=== PATIENT | female | born 1995 ===

== ENCOUNTER 2021-05-02 00:09 | Inpatient (IN) | payer OTHER ==
[~2021-05-02] VITALS: Ht 152.4 cm; Wt 84.4 kg
--- NOTE | 2021-05-02 16:27 | PR ---
[facility] [address] [place], [place] [address] Signed Progress Notes IP Datetime Report Generated by DIANA: 05/02/2021 16:27 PROGRESS NOTES: [id number] Procedures: Sterile Vag Exam Plan: Continue Present Management Informed Consent Obtain: Section Delivery; Induction of Labor; Risks, Benefits and Alternatives Discussed VITAL SIGNS: [id number] Vital Signs: Reviewed; Within Normal Limits EXAM: [id number] Dilatation: 0.0 Effacement: 0 Station: -3 Contractions: Irregular MEMBRANES: [id number] Comments: Called to pt's room for urgent evaluation. Pt had been in bathtub and when returned on monitor prolonged deceleration and deep variable decelerations. FHT resolved w/ position changes and IV fluid bolus. Acceleration noted w/ scalp stim. Cx still closed and thick. Noted frequent contractions; no vaginal bleeding. Reviewed concerns with patient; nonreassuring FHT now much improved w/ intrauterine rescussitation, however cx remains closed despite multiple courses of prostaglandin. No obvious sx of abruption but will continue to monitor closely. Reviewed w/ pt and all questions answered to best of my ability and to pt's apparent satisfaction. Will expectantly manage at this point and watch closely. FETUS A: [id number] FHR Baseline: 145 Variability: Moderate 6-25bpm Accelerations: 15X15 Decelerations: None FHR Category: Category I Comments on Fetus A: No evidence of metabolic acidosis FETUS B: [id number] Signing Physician: Deejay Li DO Copies: ~ *Electronically Signed* 05/02/21 1627 DEEJAY LI DO PATIENT NAME: LORETTA BULLARD PROGRESS NOTE DATE OF : [birth year] PHYSICIAN: DEEJAY LI DO RPT #: [id number] REPORT IS CONFIDENTIAL AND NOT TO BE RELEASED WITHOUT AUTHORIZATION
--- NOTE | 2021-05-02 19:04 | PR ---
[facility] [address] [place], [place] [address] Signed Progress Notes IP Datetime Report Generated by CPN: 05/02/2021 19:04 PROGRESS NOTES: [id number] Impression: Reassuring Heart Rate Procedures: Sterile Vag Exam Plan: Continue Present Management Other Plans: Expectant management Informed Consent Obtain: Section Delivery; Induction of Labor; Risks, Benefits and Alternatives Discussed VITAL SIGNS: [id number] Vital Signs: Reviewed; Within Normal Limits EXAM: [id number] Dilatation: 0.0 Effacement: 0 Station: -3 Contractions: Irregular MEMBRANES: [id number] Comments: Pt seen and examined. Pt frustrated w/ lack of progress and painful contractions. Pt concerned about decelerations that have resolved. Discussed frequent contractions w/ reassuring FHT. Discussed contraindication for additional prostaglandins or pitocin. Unable to place cervical balloon due to closed status and unable to tolerate pelvic exams well. Plan expectant management at this time. Discussed indications for if needed. Offered epidural if pt desires. All questions answered. FETUS A: [id number] FHR Baseline: 145 Variability: Moderate 6-25bpm Accelerations: 15X15 Decelerations: None FHR Category: Category I Comments on Fetus A: No evidence of metabolic acidosis FETUS B: [id number] Signing Physician: Deejay Li DO Copies: ~ *Electronically Signed* 05/02/21 1904 DEEJAY LI DO PATIENT NAME: LORETTA BULLARD PROGRESS NOTE DATE OF : [birth year] PHYSICIAN: DEEJAY LI DO [facility] #: [id number] REPORT IS CONFIDENTIAL AND NOT TO BE RELEASED WITHOUT AUTHORIZATION
--- NOTE | 2021-05-03 08:47 | PR ---
[facility] [address] [place], [place] [address] Signed Progress Notes IP Datetime Report Generated by DIANA: 05/03/2021 07:53 PROGRESS NOTES: [id number] Impression: Reassuring Heart Rate Procedures: Sterile Vag Exam Plan: Cervical Ripening Other Plans: Expectant management Informed Consent Obtain: Vaginal Delivery; Section Delivery; Induction of Labor VITAL SIGNS: [id number] Vital Signs: Reviewed; Within Normal Limits EXAM: [id number] Dilatation: 0.0 Effacement: 0 Station: -3 Contractions: Irregular MEMBRANES: [id number] Comments: Pt seen and examined. Baby w/ reassuring FHT overnight and contractions more mild and spaced. On exam, cervix continues to be closed thick and posterior. Reviewed options for continued IOL. Discussed I would not feel comfortable discharging pt home given decelerations yesterday. Reviewed Bishops score and unripened cervix. Unable to place Cook / Walton catheter for mechanical ripening. Cervidil unavailable. Recommended continue cervical ripening w/ cytotec. Reviewed indications for primary delivery if needed. All questions answered, and pt understands and agrees with plan of care. FETUS A: [id number] FHR Baseline: 145 Variability: Moderate 6-25bpm Accelerations: 15X15 Decelerations: None FHR Category: Category I Comments on Fetus A: No evidence of metabolic acidosis FETUS B: [id number] Signing Physician: Deejay Li DO Copies: ~ *Electronically Signed* 05/03/21 0753 DEEJAY LI DO PATIENT NAME: LORETTA BULLARD PROGRESS NOTE DATE OF : 93 PHYSICIAN: DEEJAY LI DO RPT #: [id number] REPORT IS CONFIDENTIAL AND NOT TO BE RELEASED WITHOUT AUTHORIZATION
--- NOTE | 2021-05-03 14:15 | PR ---
[facility] [address] [place], [place] [address] Signed Progress Notes IP Datetime Report Generated by CPDevin: 05/03/2021 14:15 PROGRESS NOTES: [id number] Impression: Reassuring Heart Rate Procedures: Sterile Vag Exam Plan: Anesthesia Consult Other Plans: Expectant management Informed Consent Obtain: Vaginal Delivery; Section Delivery; Induction of Labor VITAL SIGNS: [id number] Vital Signs: Reviewed; Within Normal Limits EXAM: [id number] Dilatation: 0.0 Effacement: 0 Station: -3 Contractions: Irregular MEMBRANES: [id number] Comments: Pt seen and examined. Doing well but becoming more frustrated w/ lack of progress. Contractions uncomfortable. FHT reassuring. Cx unchanged and pt unable to tolerate exams. Recommend labor epidural. This may allow better exams and / or cervical procedures (balloon AROM etc) to continue forward with induction. Pt understands and agrees FETUS A: [id number] FHR Baseline: 145 Variability: Moderate 6-25bpm Accelerations: 15X15 Decelerations: None FHR Category: Category I Comments on Fetus A: No evidence of metabolic acidosis FETUS B: [id number] Signing Physician: Deejay Li DO Copies: ~ *Electronically Signed* 05/03/21 1417 DEEJAY LI DO PATIENT NAME: LORETTA BULLARD PROGRESS NOTE DATE OF : [birth year] PHYSICIAN: DEEJAY LI DO RPT #: [id number] REPORT IS CONFIDENTIAL AND NOT TO BE RELEASED WITHOUT AUTHORIZATION
--- NOTE | 2021-05-03 15:44 | PR ---
[facility] [address] [facility] [place] [place] [address] Signed Progress Notes IP Datetime Report Generated by CPN: 05/03/2021 15:43 PROGRESS NOTES: [id number] Impression: Reassuring Heart Rate Procedures: Sterile Vag Exam Plan: Cervical Ripening Other Plans: Expectant management Informed Consent Obtain: Vaginal Delivery; Section Delivery; Induction of Labor VITAL SIGNS: [id number] Vital Signs: Reviewed; Within Normal Limits EXAM: [id number] Dilatation: 0.0 Effacement: 60 Station: -3 Contractions: Irregular MEMBRANES: [id number] Comments: Pt seen and examined. Comfortable w/ epidural. Fingertip and soft on cx exam. Will continue another dose of cytotec and consider Cook cath if additional ripening required. FETUS A: [id number] FHR Baseline: 145 Variability: Moderate 6-25bpm Accelerations: 15X15 Decelerations: None FHR Category: Category I Comments on Fetus A: No evidence of metabolic acidosis FETUS B: [id number] Signing Physician: Deejay Li DO Copies: ~ *Electronically Signed* 05/03/21 1543 DEEJAY LI DO PATIENT NAME: LORETTA BULLARD PROGRESS NOTE DATE OF : [birth year] PHYSICIAN: DEEJAY LI DO RPT #: [id number] REPORT IS CONFIDENTIAL AND NOT TO BE RELEASED WITHOUT AUTHORIZATION
--- NOTE | 2021-05-03 21:26 | PR ---
[facility] [address] [place], [place] [address] Signed Progress Notes IP Datetime Report Generated by CPDevin: 05/03/2021 21:26 PROGRESS NOTES: [id number] Impression: Normal Progression of Labor; Reassuring Heart Rate Procedures: Artificial ROM; Intrauterine Pressure Catheter; Scalp Electrode; Sterile Vag Exam Plan: Continue Present Management Other Plans: Expectant management Informed Consent Obtain: Vaginal Delivery; Section Delivery; Induction of Labor VITAL SIGNS: [id number] Vital Signs: Reviewed; Within Normal Limits EXAM: [id number] Dilatation: 2.5 Effacement: 50 Station: -3 Contractions: Irregular MEMBRANES: F5509456 Comments: Called to pt room for recurrent late decels and minimal variability. AROM performed for moderate amount of clear fluid and IUPC / FSE placed without difficulty. With intrauterine rescussitation and scalp stim, FHT now reassuring w/ moderate variability and accelerations. Pelvis adequate. Discussed close monitoring of heart tracing and indications to continue trial of . Reviewed indications should be required. All questions answered. Pt and partner comfortable w/ plan of care. Anesthesia to evaluate for possible bolus of epidural as pt w/ window on left. FETUS A: [id number] FHR Baseline: 145 Variability: Moderate 6-25bpm Accelerations: 15X15 Decelerations: None FHR Category: Category I Comments on Fetus A: No evidence of metabolic acidosis FETUS B: [id number] Signing Physician: Deejay Li DO Copies: ~ *Electronically Signed* 05/03/212125 DEEJAY LI DO PATIENT NAME: LORETTA BULLARD PROGRESS NOTE DATE OF : [birth year] PHYSICIAN: DEEJAY LI DO RPT #: [id number] REPORT IS CONFIDENTIAL AND NOT TO BE RELEASED WITHOUT AUTHORIZATION
--- NOTE | 2021-05-04 05:50 | PR ---
[facility] [address] [place], [place] [address] Signed Progress Notes IP Datetime Report Generated by DIANA: 05/04/2021 05:50 PROGRESS NOTES: [id number] Impression: Arrest of Dilatation/Descent; Non-reassuring Heart Rate; Intrauterine Inflammation Procedures: Sterile Vag Exam Plan: Deliver- Section Other Plans: Expectant management Informed Consent Obtain: Section Delivery VITAL SIGNS: [id number] Vital Signs: Reviewed; Within Normal Limits EXAM: [id number] Dilatation: 6.0 Effacement: 90 Station: -2 Contractions: Irregular MEMBRANES: [id number] Comments: Pt seen and examined. Pt developed maternal fever and tachycardia. Nonmalodorous amniotic fluid. Tmax oral 102.0. Contractions have spaced and are now inadequate. Moderate variability but late deceleration was noted. On cervical exam, cervix now markedly swollen. Discussed w/ pt and partner in detail and recommend treating suspected chorioamnioitis (Triple I) and also proceeding with primary LTCS. Risks benefits and alternatives were discussed in detail w/ pt. Will draw blood cultures and CBC, check urine culture, and initiate abx therapy with Ampicillin 2g IV q6 hr, Clindamycin 900mg q8 hr, Gentamicin 5mg/kg daily, and Azithromycin 500mg x 1. Pt was given acetaminophen 1000mg PO x 1 dose. Consents signed, OR crew and anesthesia en route, and Dr. Garland notified and will assist. Pediatrics notified and will be present for delivery. FETUS A: [id number] FHR Baseline: 145 Variability: Moderate 6-25bpm Accelerations: 15X15 Decelerations: None FHR Category: Category I Comments on Fetus A: No evidence of metabolic acidosis FETUS B: [id number] Signing Physician: Deejay Li DO *Electronically Signed* 05/04/21 0550 DEEJAY LI DO PATIENT NAME: LORETTA BULLARD PROGRESS NOTE DATE OF : 93 PHYSICIAN: DEEJAY LI DO RPT #: [id number] REPORT IS CONFIDENTIAL AND NOT TO BE RELEASED WITHOUT AUTHORIZATION [address] [place], [place] [address] Signed Copies: ~ *Electronically Signed* 05/04/21 0550 DEEJAY LI DO PATIENT NAME: LORETTA BULLARD PROGRESS NOTE DATE OF : 93 PHYSICIAN: DEEJAY LI DO RPT #: [id number] REPORT IS CONFIDENTIAL AND NOT TO BE RELEASED WITHOUT AUTHORIZATION
--- NOTE | 2021-05-04 07:25 | NUR ---
05/04/21 0725 Angeles Juarez 0771-PATIENT ARRIVED TO TO ROOM 106 FOR PACU RECOVERY. PATIENT AWAKE DENIES PAIN OR NAUSEA. FUNDUS 1 BELOW UMBILICUS LIGHT RUBRA DRAINAGE ON MINA PAD. GUZMAN CATHETER DRAINING YELLOW URINE. LR WITH 20 PITOCIN INFUSING TO LEFT HAND. IV ABX INFUSING TO RIGHT HAND CDI. DAD AT BEDSIDE. SPINAL LEVEL T10
--- NOTE | 2021-05-06 09:56 | PR ---
[facility] [address] [place], [place] [address] Signed PP Progress Notes Datetime Report Generated by CPN: 05/06/2021 09:56 SUBJECTIVE: [id number] Pain: Within Normal Limits Nausea/Vomiting: Denies Flatus: Yes Bowel Movement: No Vital Signs: [id number] Vital Signs: Reviewed; Within Normal Limits Notable Details: Afebrile EXAM: Met Cardiovascular: Normal Respiratory: Normal Abdomen/Uterus: Normal Lochia: Normal Vulva/Perineum: Not Done Breasts: Not Done CVA Tenderness: Normal Extremities: Normal Incision: Normal Progress: Normal Exam Comments: Fundus firm U-2 nontender. Incision well healing IMPRESSION/PLAN/PROCEDURES: [id number] Impression: Normal Progression Plan: Remove Galilea; Discharge Progress Notes: Pt seen and examined. Doing well. Ambulating, voiding, and tolerating full diet. Pain and lochia minimal. well. No fevers. Labs show resolved leukocytosis, negative urine cultures, and blood cultures negative so far. Baby doing very well. Reviewed course of labor, delivery, and . Reviewed discharge instructions in detail and discussed pp contraception. All questions answered to best of my ability and to pts apparent satisfaction. D/C home Signing Physician: Deejay Li DO Copies: ~ *Electronically Signed* 05/06/21 0956 DEEJAY LI DO PATIENT NAME: LORETTA BULLARD PROGRESS NOTE DATE OF : 93 PHYSICIAN: DEEJAY LI DO RPT #: [id number] REPORT IS CONFIDENTIAL AND NOT TO BE RELEASED WITHOUT AUTHORIZATION
--- NOTE | 2021-05-09 12:59 | PATH ---
[facility] [address] [place], [place] [address] Signed SPECIMEN(S): A PLACENTA SPECIMEN SOURCE: A. PLACENTA CLINICAL HISTORY: Mother's age: 25. OB history: . score: 8, 9. Rh positive. Antibody screen: Negative. Maternal serologies: Rubella immune, RPR negative, hepatitis screen negative, GBS negative. Specific issues of concern: Maternal peripartum fever and/or infection. 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 - Umbilical cord: Three-vessel umbilical cord with no histopathologic abnormality. - membranes: No histopathologic abnormality. - Placental disc: Villous infarct (2.2 cm), chorionic villi with mature villous morphology. COMMENT: The gestational age was not provided, therefore the appropriateness of placental weight cannot be determined. NAL:cml:C2NR MICROSCOPIC EXAMINATION: Histologic sections of all submitted blocks are examined by light microscopy. These findings, together with the gross examination, support the pathologic diagnosis. GROSS DESCRIPTION: The specimen, labeled "DC, placenta," is received fresh and placed in formalin and consists of godfrey discoid placenta with the following parameters: Umbilical cord: Insertion eccentric-2.7 cm from the margin, measurement 12.2 x 1.4 cm; trivascular. Cord coiling index (per 10 cm): Grossly indeterminate. Lesions: Not grossly identified. Membranes: Insertion site: Marginal, jiang/translucent, rupture site eccentric. Intact. Other: Not grossly identified. Chorionic Plate: Normal radiating vascular pattern, blue-purple and shiny. Lesions: One, focal, submembranous, 1.0 cm in greatest dimension area of jiang-white consolidation. Other: Not grossly PATIENT NAME: LORETTA BULLARD PATHOLOGY DATE OF : [birth year] REPORT #: [id number] PHYSICIAN: LEONEL PATHOLOGY PCP: YVROSE VAZQUEZ MD REPORT IS CONFIDENTIAL AND NOT TO BE RELEASED WITHOUT AUTHORIZATION [facility] [address] [place], [place] [address] Signed identified. Maternal Surface: Normal cotyledons, intact. Lesions: Multiple, focal areas of adherent blood clot from 0.2 up to 1.3 cm in greatest dimension and comprising approximately 10% of the surface. Measurement: 17.2 x 15.8 x 3.8 cm. Weight (trimmed): 451 g Cut Surface: Maroon and spongy. Lesions: One, 2.2 cm in greatest dimension, eccentric area of jiang-white consolidation. Basal plate fibrin 0.1 cm in thickness. Other Findings: Not grossly identified. Cassette Summary: (A1) membranes and umbilical cord (A2) eccentric section of placenta including parenchymal consolidation (A3) central section of placenta including chorionic plate area of consolidation (A4) eccentric section of placenta including maternal surface adherent clotted blood. AI (under the direct supervision of a pathologist) The Gross Description was prepared using a voice recognition system. The report was reviewed for accuracy; however, sound-alike word errors, addition and/or deletions may occur. If there is any question about this report, please contact Client Services. PERFORMING LABORATORY: The technical component was performed by [email or web address], [address] [place] [id number] (Project Construction Manager: Kim Arellano MD; CLIA# [id number]). [email or web address] [address] [address] (IA# [id number]). Diagnostician: Betzy Layton MD Pathologist Electronically Signed 05/09/2021 Copies: ~ PATIENT NAME: LORETTA BULLARD PATHOLOGY DATE OF : [birth year] REPORT #: [id number] PHYSICIAN: LEONEL PATHOLOGY PCP: YVROSE VAZQUEZ MD REPORT IS CONFIDENTIAL AND NOT TO BE RELEASED WITHOUT AUTHORIZATION
--- NOTE | 2021-05-31 23:01 | OR ---
[address] [address] Signed DATE OF OPERATION: 05/04/2021 SURGEON: Deejay Li DO PREOPERATIVE DIAGNOSES: 1. Term . 2. Chorioamnionitis. 3. intolerance of labor. 4. Failure to progress. POSTOPERATIVE DIAGNOSES: 1. Term . 2. Chorioamnionitis. 3. intolerance of labor. 4. Failure to progress. PROCEDURE PERFORMED: Primary low transverse delivery. ANESTHESIA: Epidural for labor and spinal for . CLERK STENOGRAPHER: Daniella Garland DO. ESTIMATED BLOOD LOSS: 600 mL. COMPLICATIONS: None. SPECIMENS: Placenta to pathology for suspected chorioamnionitis. FINDINGS: Viable female weighing 6 pounds 7 ounces, 2910 g in the direct OP position with Apgars of 8 and 9 and no nuchal cord noted. Normal uterus, fallopian tubes, and ovaries. No evidence of recurrent abdominal hernia that the patient expressed concern previously. Electronically Signed By: DEEJAY LI DO 05/31/21 2305 PATIENT NAME: LORETTA ETIENNE OPERATIVE REPORT DATE OF : [birth year] REPORT #: [id number] PHYSICIAN: DEEJAY LI DO PCP: YVROSE VAZQUEZ MD REPORT IS CONFIDENTIAL AND NOT TO BE RELEASED WITHOUT AUTHORIZATION [address] [address] Signed INDICATIONS: Ms. Etienne is a very pleasant 25-year-old female, who presented to Labor and Delivery. Labor progressed and the patient developed fever as well as tachycardia with non-reassuring heart tracing. Labor slow to progress and decision was made to proceed with primary low transverse delivery. Risks, benefits, and alternatives were discussed in detail with the patient. The patient understands and wished to proceed with the procedure. TECHNIQUE: Prior to the patient coming to the operative room, blood and urine cultures were obtained. Ampicillin, gentamicin, clindamycin, and azithromycin were ordered. The patient was then brought to the operative room where epidural was not found to be adequate and decision was made to proceed with spinal. Spinal anesthetic was adequately established. The patient was then prepped and draped in the supine position with a bump under the right hip. Time-out was performed to confirm correct patient, correct procedure. No heparin was indicated. A Pfannenstiel skin incision was made 2 cm above the pubic symphysis and carried down to the fascia. Fascia was nicked in the midline and fascial incision was extended bilaterally using curved Monge scissors. Fascia was grasped with Girish's, elevated, and the underlying rectus muscle dissected off bluntly and sharply. Rectus was then divided in the midline bluntly and the peritoneum was grasped with hemostats, elevated, and entered sharply. Peritoneal incision was extended cephalad caudad without difficulty. An Jerry self retractor was then placed. The lower uterine segment identified. Hysterotomy was then performed in lower uterine segment using surgical scalpel. Hysterotomy was extended bilaterally using blunt dissection. Direct OP position was identified and the surgeon's hand was placed inside the uterine cavity and the vertex was flexed and delivered into the abdomen without difficulty. No nuchal was identified. The remainder of the was delivered with the assistance of fundal pressure and the was vigorous and cried upon delivery. The cord was doubly clamped and cut and the handed to the waiting pediatric team for further care. Cord blood was obtained and the placenta was expressed intact with a centrally inserted 3-vessel cord and sent to pathology for further evaluation. The uterus was quite firm with the addition of Pitocin and the uterine cavity was cleared of any remaining products of conception or clot. Hysterotomy was repaired using 0 Monocryl in a running locked stitch. A second vertical imbricating stitch of 0 Monocryl was applied with good imbrication and hemostasis. The pelvis was irrigated and small oozing vessels were made hemostatic with judicious Bovie electrocautery. The Jerry self retractor was removed and the lower segment again identified, and found to be hemostatic. ACell was applied to the lower uterine segment without difficulty. Peritoneum was then reapproximated using 2-0 Vicryl in a running nonlocked manner. The rectus muscle was identified and made hemostatic with judicious use of Bovie electrocautery. Rectus was then plicated in the midline using interrupted sutures of 0 Vicryl. ACell powder was applied to the rectus sheath. Fascia was then Electronically Signed By: DEEJAY LI DO 05/31/21 2302 PATIENT NAME: LORETTA ETIENNE OPERATIVE REPORT DATE OF : [birth year] REPORT #: [id number] PHYSICIAN: DEEJAY LI DO PCP: YVROSE VAZQUEZ MD REPORT IS CONFIDENTIAL AND NOT TO BE RELEASED WITHOUT AUTHORIZATION [address] [address] Signed reapproximated using 0 Vicryl in a running nonlocked manner. Subcu was irrigated, found to be hemostatic after judicious use of Bovie electrocautery. Subcu was reapproximated using 2-0 Vicryl in a running nonlocked manner. Skin was reapproximated using surgical solomon. The uterus was Crede'd for scant amount of blood and the patient was taken to the PACU in good and stable condition. Sponge, needle, and instrument count was correct x2 at the end of the procedure. Dr. Garland was present and participated in all portions of the procedure. Deejay Li DO JDW/MODL /[id number] Copies: ~ Electronically Signed By: DEEJAY LI DO 05/31/21 2301 PATIENT NAME: LORETTA ETIENNE OPERATIVE REPORT DATE OF : [birth year] REPORT #: [id number] PHYSICIAN: DEEJAY LI DO PCP: YVROSE VAZQUEZ MD REPORT IS CONFIDENTIAL AND NOT TO BE RELEASED WITHOUT AUTHORIZATION
== END 2021-05-06 11:35 | disposition home or self-care (01) | DRG 786 ==
LOC: FBC 00:09
PROVIDERS: ADMIT Obstetrics & Gynecology; ATTEND Obstetrics & Gynecology
PROC: 3E0P7VZ Introduction of Hormone into Female Reproductive, Via Natural or Artificial Opening (ICD-10-PCS; 2021-05-02)
PROC: 10907ZC Drainage of Amniotic Fluid, Therapeutic from Products of Conception, Via Natural or Artificial Opening (ICD-10-PCS; 2021-05-03)
PROC: 10H07YZ Insertion of Other Device into Products of Conception, Via Natural or Artificial Opening (ICD-10-PCS; 2021-05-03)
PROC: 00HU33Z Insertion of Infusion Device into Spinal Canal, Percutaneous Approach (ICD-10-PCS; 2021-05-03)
PROC: 3E0R3BZ Introduction of Anesthetic Agent into Spinal Canal, Percutaneous Approach (ICD-10-PCS; 2021-05-03)
PROC: 10D00Z1 Extraction of Products of Conception, Low, Open Approach (ICD-10-PCS; principal; 2021-05-04 05:52)
DX: O32.4XX0 Maternal care for high head at term, not applicable or unspecified (principal); O41.1230 Chorioamnionitis, third trimester, not applicable or unspecified; O62.1 Secondary uterine inertia; Z37.0 Single live birth; O99.52 Diseases of the respiratory system complicating childbirth; J45.909 Unspecified asthma, uncomplicated; O76 Abnormality in fetal heart rate and rhythm complicating labor and delivery; Z3A.39 39 weeks gestation of pregnancy; Z87.891 Personal history of nicotine dependence
CPT/HCPCS: 01961; 36415; 85025; 85027; 86703; 86762; 86780; 86850; 86900; 86901; 87040; 87088; 87340; 88307; A9270; J0290; J0456; J1580; J1650; J1885; J2001; J2274; J2590; J2795; J3490; J7060; J7121